=== PATIENT | female | born 1955 | race Caucasian/White ===

== ENCOUNTER → 2019-04-24 | Outpatient (CLI) | payer MEDICARE, OTHER ==
--- NOTE | 2019-04-24 11:15 | RADIOLOGY REPORT (SQ) ---
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 Images stored on PACS. LIMITATIONS: None. FINDINGS: RIGHT CAROTID CCA Velocities: Within normal limits. ICA Velocities Peak systolic 234 m/s. End diastolic 41 m/s. Proximal ICA/CCA peak systolic ratio 1.58. Spectra normal. No significant plaque. LEFT CAROTID CCA Velocities: Within normal limits. ICA Velocities Peak systolic 81 m/s. End diastolic 15 m/s. Proximal ICA/CCA peak systolic ratio 0.83. Spectra normal. No significant plaque. VERTEBRAL ARTERIES: Antegrade flow right vertebral. Retrograde flow left vertebral. May be seen wit h subclavian steal. SUBCLAVIAN ARTERIES: No finding. OTHER: No other significant finding. IMPRESSION: Stable 50 to 69% stenosis right internal carotid. Degree of stenosis of the left project internship al carotid previously 50 69% however flow velocities now currently consistent with less than 50%. Re trograde flow left vertebral again noted that may be associated with subclavian steal. History of pr evious left endarterectomy prior to the earlier study of 2015. COMMENT: Quality ID #[id number]: Velocity criteria are extrapolated from the diameter data as defined by t he Society of Radiologists in Ultrasound Consensus Conference. Radiology 2003: 229; 340-346. TECHNICAL DOCUMENTATION: JOB ID: [id number] [email or web address]- All Rights Reserved Reading location - IP/workstation name: [email or web address]
== END ==
LOC: SP 08:41
PROVIDERS: ATTEND Obstetrics & Gynecology
DX: I65.23 Occlusion and stenosis of bilateral carotid arteries (principal); Z86.73 Personal history of transient ischemic attack (TIA), and cerebral infarction without residual deficits
CPT/HCPCS: 93880

== ENCOUNTER → 2019-07-11 | Outpatient (CLI) | payer MEDICARE, OTHER ==
--- NOTE | 2019-07-11 15:00 | RADIOLOGY REPORT (SQ) ---
EXAM DESCRIPTION: DUPLEX ART/ZEYAD FLOW COMPLETE COMPLETED DATE/TIME: 07/11/2019 10:59 am REASON FOR STUDY: N18.3 CHRONIC KIDNEY DISEASE, STAGE 3 (MODERATE), I12.9 HYPERTENSIVE CHRONI N18.3 CHRONIC KIDNEY DISEASE, STAGE 3 (MODERATE) I12.9 HYPERTENSIVE CHRONIC KIDNEY DISEASE W STG 1-4/UNSP CHR COMPARISON: None. TECHNIQUE: Realtime and static grayscale images acquired. Selected color Doppler, velocities and spe ctral images recorded. LIMITATIONS: Unable to visualize the renal artery origins off the aorta due to midline bowel gas. FINDINGS: RIGHT KIDNEY: RENAL ARTERY VELOCITIES: At the hilum, 81 cm/sec. Segmental artery velocity 67 cm/sec. RENAL VEIN: Color doppler flow present, patent. VELOCITY RATIO: Normal. Normal waveforms. KIDNEY: 10.3 cm in length with normal cortical thickness and echogenicity. No significant patholog y. LEFT KIDNEY: RENAL ARTERY VELOCITIES: At the hilum, 28 cm/sec. Segmental artery velocity 20 cm/sec. RENAL VEIN: Color doppler flow present, patent. VELOCITY RATIO: Normal. Spectral waveforms of the left renal artery at the hilum and segmental arteri es demonstrates blunted amplitude and delayed upstroke (tardus parvus waveform) which is worrisome fo r left renal artery stenosis. KIDNEY: 8.5 cm with diffuse cortical thinning and increased echogenicity. No left-sided hydroneph rosis. BLADDER: Normal. OTHER: Incidental finding of stones in the gallbladder IMPRESSION: Abnormal spectral waveforms left kidney with depressed velocities of the left renal heaven ry at the hilum. Findings are worrisome for more proximal renal artery stenosis. This is likely a c hronic finding, as the left kidney is atrophied, small in size with cortical thinning No gross evidence of renal artery stenosis on the right side COMMENT: NORMAL RENAL ARTERY/AORTA VELOCITY RATIO IS LESS THAN OR EQUAL TO 3.5. TECHNICAL DOCUMENTATION: JOB ID: [id number] [employer]- All Rights Reserved Reading location - IP/workstation name: [email or web address]
== END ==
LOC: RAD 08:53
PROVIDERS: ATTEND Internal Medicine Nephrology
DX: I12.9 Hypertensive chronic kidney disease with stage 1 through stage 4 chronic kidney disease, or unspecified chronic kidney disease (principal); N18.3 Chronic kidney disease, stage 3 (moderate); K80.80 Other cholelithiasis without obstruction
CPT/HCPCS: 93975

== ENCOUNTER → 2019-07-25 | Outpatient (CLI) | payer MEDICARE, OTHER ==
[2019-07-25 09:55] LABS: ANION GAP 11 (5-19); BLOOD UREA NITROGEN 47 mg/dL (7-20); CALCIUM 10.1 mg/dL (8.4-10.2); CARBON DIOXIDE 24 mmol/L (22-30); CHLORIDE 106 mmol/L (98-107); GLUCOSE 109 mg/dL (75-110); POTASSIUM 5.2 mmol/L (3.6-5.0)
== END ==
LOC: OD 09:14
PROVIDERS: ATTEND Internal Medicine Nephrology
DX: I12.9 Hypertensive chronic kidney disease with stage 1 through stage 4 chronic kidney disease, or unspecified chronic kidney disease (principal); N18.3 Chronic kidney disease, stage 3 (moderate); R80.9 Proteinuria, unspecified
CPT/HCPCS: 36415; 80048; 83735